=== PATIENT | male | born 1960 | race African-American/Black ===

== ENCOUNTER 2019-03-19 15:46 | Observation (INO) ==
[~2019-03-19 15:46] MED LIST: LEXISCAN ONE
[2019-03-19] MEDS ORDERED: NS 500 ML IV ONE (15:56)
[2019-03-19 16:11] LABS: BASO# 0.05 X1000 (0.0-0.2); BASO% 0.3 % (0.0-0.8); EOS# 0.11 X1000 (0.0-0.7); EOS% 0.8 % (0.0-10.0); HEMOGLOBIN 15.8 g/dL (14.0-18.0); IMM GRAN# 0.03 X1000 (0.0-0.04); IMM GRAN% 0.2 % (0.0-0.5); LYMPH# 4.37 X1000 (1.2-3.4); LYMPH% 30.3 % (20.5-51.1); MCH 28.6 PG (27-31); MCHC 35.1 g/dL (33-37); MCV 81.4 FL (81-99); MONO# 0.74 X1000 (0.11-0.59); MONO% 5.1 % (1.7-9.3); MPV 9.3 FL (7.4-10.4); NEUT% 63.3 % (42.2-75.2); PLT 388 X1000 (130-400); RBC 5.53 XMIL (4.7-6.1); RDW 13.2 % (11.5-14.5)
--- NOTE | 2019-03-19 16:29 | Diag Imaging Result Doc PS360 ---
CHEST-PORTABLE - 03/19/2019 INDICATION: chest tightness COMPARISON: 10/25/2018 FINDINGS: The lungs are normally expanded and clear. Heart size and mediastinal contours are normal. No pneumothorax or pleural effusion. IMPRESSION: Negative exam. Electronically signed by Chapo Carlton 03/19/2019 4:26 PM
[2019-03-19] MEDS ORDERED: FIORICET PO ONE (16:33)
[2019-03-19 16:34] LABS: CALCIUM 10.6 mg/dL (8.8-10.2); CREATININE 1.8 mg/dL (0.7-1.2); POTASSIUM 3.8 mmol/L (3.5-5.1); TOTAL BILIRUBIN 0.5 mg/dL (0.20-1.00)
[2019-03-19 16:35] LABS: ALBUMIN 5.2 g/dL (3.5-5.0); TOTAL PROTEIN 8.5 g/dL (6.3-8.3)
[2019-03-19] MEDS ORDERED: NITROGLYCERIN SL PRN (20:04)
[2019-03-19] MEDS ORDERED: ULTRAM PO PRN (20:04)
[2019-03-19] MEDS ORDERED: TYLENOL WITH CODEINE #3 PO PRN (20:04)
[2019-03-19] MEDS ORDERED: TYLENOL PO PRN (20:04)
[2019-03-19] MEDS: NS 1,000 ML IV SCH (20:55)
[2019-03-19] MEDS ORDERED: ZANTAC PO SCH (21:00)
[2019-03-19] MEDS ORDERED: SOMA PO SCH (21:00)
[2019-03-19] MEDS ORDERED: XANAX PO SCH (21:00)
[2019-03-19] MEDS ORDERED: ROBAXIN PO SCH (21:00)
[2019-03-19 21:01] LABS: CREATININE 1.4 mg/dL (0.7-1.2); POTASSIUM 3.8 mmol/L (3.5-5.1)
--- NOTE | 2019-03-19 21:07 | HISTORY AND PHYSICAL ---
ADDENDUM: The patient came in with chest pain. He is a very dramatic individual, but he does have CAD with 4 PCIs. He describes episodes where he almost passed out, was frothing at the mouth. He also has chest pain that was terrible. He has had episodes of this off and on. Now, according to records here, I do not think he has ever been admitted ever in several years. In any case, the patient will be placed in Observation for chest pain. His physical exam is really unremarkable. He is fairly histrionic and by that, I just mean I think he tends to get worked up and there is anxiety component to his chest pain, but he does have known disease and this will need to be analyzed for other treatments. This is a [id number] note with gary Long. cc: MD Dr. Sloan Trujillo
--- NOTE | 2019-03-19 21:18 | HISTORY AND PHYSICAL ---
PRIMARY CARE PHYSICIAN: Jovan Palencia MD. CHIEF COMPLAINT: Chest pain. HISTORY OF PRESENTING ILLNESS: This is a 58-year-old, male who presents to [facility] ER via EMS after he began having some left-sided chest pain that radiated to his bilateral arms causing numbness with shortness of breath. States that he just "didn't feel right in his heart." Told his family that he needed to be transported to the emergency room. Before they could do that, he had a "pass out" episode where he may have frothed at the mouth some. The patient is very dramatic and tearful during the interview process in assessment, but he does have a history of coronary artery disease and has had stent placements in the past. His workup so far has showed a white blood cell count of 14.40. First set of cardiac enzymes were negative. His creatinine is 1.8, which is above his baseline, that is around 1.1 to 1.4. His EKG showed normal sinus rhythm at 88. A chest x-ray was negative, but we are going to place the patient in the hospital for further evaluation and treatment. PAST MEDICAL HISTORY: Hypertension, coronary artery disease, hyperlipidemia and [place], GERD, chronic back pain and anxiety. PAST SURGICAL HISTORY: Heart stent placement x2. FAMILY HISTORY: Reviewed and noncontributory. SOCIAL HISTORY: Currently lives with family. Was a former smoker. Drinks alcohol occasionally and no illicit drug use. ALLERGIES: Fentanyl, Ketoralac and morphine. HOME MEDICATIONS: He takes Tylenol with codeine #3 q.6 hours p.r.n., Xanax 1 mg p.o. b.i.d., Norvasc 5 mg p.o. daily, aspirin 325 mg p.o. daily, atorvastatin 20 mg p.o. daily, Soma 350 mg p.o. b.i.d. We will hold his diclofenac 75 mg p.o. b.i.d., hold his Star 7.5 p.o. q.6 hours p.r.n., hold his losartan hydrochlorothiazide 100/12.5 p.o. daily, magnesium 400 mg p.o. daily, Robaxin 750 mg p.o. b.i.d., Prilosec 20 mg p.o. daily, prednisone 20 mg p.o. as directed will be held and Zantac 150 mg p.o. b.i.d. and tramadol 50 mg p.o. q.6 hours p.r.n. LABORATORY DATA: Showed a white blood cell count of 14.40, hemoglobin 15.8, hematocrit 45, platelets 388. Sodium 138, potassium 3.8, chloride 96, CO2 of 25, BUN of 25, creatinine 1.8, glucose 135. Cardiac enzymes, the first set, is negative. Chest x-ray showed a negative exam. EKG showed normal sinus rhythm at 88. REVIEW OF SYSTEMS: He denied any fever, chills, blurred vision, dizziness. He had left-sided chest pain radiating to his bilateral arms with numbness. Some shortness of breath, nausea, diaphoresis. States he had a pass out episode and that he had a little foaming at the mouth with. Denied any abdominal pain, constipation, diarrhea, burning or hurting with urination. PHYSICAL EXAMINATION: VITAL SIGNS: On arrival, he had a temperature of 98, pulse 90, respirations 18, blood pressure 125/85, saturating 95% on room air. GENERAL: This is a 58-year-old, male, who is sitting up in the bed, is very tearful and somewhat animated, but answers all questions appropriately. HEENT: Normocephalic, atraumatic. Normal ENT inspection. Oropharynx and nares are clear. Eyes: Pupils are equal, round, reactive to light and accommodation. Extraocular movements are intact. NECK: Normal inspection. Normal range of motion. LUNGS: Clear to auscultation bilaterally with equal lung expansion and chest wall movement. HEART: With regular rate and rhythm. No murmurs, rubs, or gallops. ABDOMEN: Soft, nontender, nondistended. Bowel sounds are present x4 quadrants. MUSCULOSKELETAL: He has 5/5 strength x4 extremities. NEUROLOGICAL: The cranial nerves 2-12 appear grossly intact. ASSESSMENT: 1. Chest pain. 2. Anxiety. 3. Coronary artery disease with stent placement x2. 4. Gastroesophageal reflux disease. PLAN: He will be admitted to the medical unit at [place], placed on telemetry, O2 per protocol. We will do serial cardiac enzymes q.8 x3. We will give him a healthy heart diet tonight. He will be n.p.o. after midnight for myocardial perfusion scan in the a.m. We will also check an echocardiogram and carotid Dopplers. Continue his home medications as previously identified. We are going to give him some normal saline at 100 mL an hour. Recheck a CBC, BMP, and lipid profile in the a.m. and further orders after being seen by attending. Dictated by SAMPSON Guo for Marcelino Jones MD cc: SAMPSON Guo MD Michael Putman, MD
[2019-03-19 21:38] LABS: CK INDEX 0.9 (0.0-2.5); CK-MB 3.7 ng/mL (0.0-5.0)
[2019-03-19] MEDS: XANAX PO SCH (22:25)
[2019-03-19] MEDS: ZANTAC PO SCH (22:26)
[2019-03-20] MEDS: NORCO-7.5 PO PRN ×4 (00:13→16:37)
--- NOTE | 2019-03-20 06:18 | EKG Report ---
Test Performed on : 03/20/2019 06:11:01 AM Test Reason : CP Blood Pressure : / mmHG Vent. Rate : 074 BPM Atrial Rate : 074 BPM P-R Int : 162 ms QRS Dur : 092 ms QT Int : 368 ms P-R-T Axes : 043 051 058 degrees QTc Int : 408 ms Poor data quality, interpretation may be adversely affected Normal sinus rhythm. Normal ECG When compared with ECG of 19-MAR-2019 15:37, (Unconfirmed) No significant change was found Unconfirmed Result
[2019-03-20] MEDS ORDERED: PRILOSEC PO SCH (07:00)
[2019-03-20] MEDS: NS 1,000 ML IV SCH (07:30)
--- NOTE | 2019-03-20 07:49 | PROVIDER DOCUMENTATION ---
This chart was entered by Tari Shoemaker Scribe, acting as scribe for Leanne Kaminski MD. HPI-General Adult - General Chief Complaint: Dizziness Stated Complaint: chest pain Time Seen by Provider: 03/19/19 15:56 Source: patient, family (mother) Allergies/Adverse Reactions: Patient Allergies Allergy/AdvReac Type Severity Reaction Status Date / Time fentanyl Allergy Mild ITCHING Verified 10/25/18 10:27 ketorolac tromethamine * Allergy Mild HIVES Verified 10/25/18 10:27 [From Toradol] morphine Allergy Mild HEADACHE Verified 10/25/18 10:27 Home Medications: Home Medication List Medication Instructions Recorded Confirmed Last Taken Type Aspirin 325 mg PO DAILY 03/09/13 03/19/19 1 Day Ago History ~08/18/17 Ranitidine HCl [Zantac 75] 75 mg PO BID 05/28/15 03/19/19 1 Day Ago History ~08/18/17 Carisoprodol [Soma] 350 mg PO BID 06/15/15 03/19/19 1 Day Ago History ~08/18/17 Hydrocodone/APAP 7.5 mg/325 mg 1 each PO Q6H PRN PRN #10 tablet 08/30/15 03/19/19 1 Day Ago Rx [[place]-7.5] ~08/18/17 Alprazolam [Xanax] 1 mg PO BID 08/19/17 03/19/19 1 Day Ago History ~08/18/17 Omeprazole [Prilosec] 20 mg PO DAILY@0700 #20 cap 12/21/17 03/19/19 Unknown Rx Acetaminophen with Codeine 1 ea PO Q6H PRN PRN #20 tab 03/29/18 03/19/19 Unknown Rx [Tylenol with Codeine #3 Tablet] Magnesium Oxide [Magnesium] 400 mg PO DAILY #30 tab 03/29/18 03/19/19 Unknown Rx Methyl Salicylate/Menth/Camph 57 gm TP 4XDAY PRN PRN #1 cream..g. 03/29/18 03/19/19 Unknown Rx [[place] Muscle Rub Cream] Methocarbamol [Robaxin-750] 750 mg PO BID #20 tab 04/17/18 03/19/19 Unknown Rx Prednisone 20 mg PO DIRECTED #18 tab 04/17/18 03/19/19 Unknown Rx Tramadol [Ultram] 50 mg PO Q6H PRN PRN #10 tab 04/19/18 03/19/19 Unknown Rx Diclofenac Sodium 75 mg PO BID #20 tablet. 10/25/18 03/19/19 Unknown Rx Amlodipine Besylate [Norvasc] 5 mg PO DAILY 03/19/19 03/19/19 Unknown History Atorvastatin Calcium 20 mg PO DAILY 03/19/19 03/19/19 Unknown History Losartan/Hydrochlorothiazide 100 mg PO DAILY 03/19/19 03/19/19 Unknown History [Losartan-Hctz 100-12.5 mg Tab] Ranitidine [Zantac] 150 mg PO BID 03/19/19 03/19/19 Unknown History - History of Present Illness -Gen Adult Nature of Presenting Problems: 58 yobm presents to the ed via ems with c/o numbness BUE, anxiety, chest tightness, [place], n/v and fatigue and has not felt well for 3 days. pt has noted BP 93/77 Location of Pain/Injury: reports: head ([place]), upper extremity (numbness) Quality of Pain: reports: aching ([place]), other (numbness) Severity: reports: mild Onset/Duration: reports: 3 days ago Timing: reports: still present Context/Activities at Onset: reports: light activity Modifying Factors: improves with: nothing Associated Symptoms: reports: anxiety, chest pain (tightness), fatigue, headaches, nausea, vomiting. denies: back/neck pain, diarrhea, fever/chills, shortness of breath Similar Symptoms Previously?: Yes (hx of anxiety) Recently seen or treated by another doctor?: No Review of Systems - Adult - REVIEW OF SYSTEMS - ADULT Constitutional: reports: see HPI, fatique Eyes: reports: no symptoms reported Ears, Nose, Mouth & Throat: reports: no symptoms reported Cardiovascular: reports: see HPI, chest pain. denies: palpitations, syncope Respiratory: denies: shortness of breath, wheezing Gastrointestinal: reports: see HPI, nausea, vomiting. denies: diarrhea Genitourinary: reports: no symptoms reported Musculoskeletal: reports: no symptoms reported Integumentary: reports: no symptoms reported Neurological: reports: see HPI, headache/migraines, numbness (BUE). denies: ataxia, dizziness/vertigo, paresthesia, seizure, slurred speech, syncope, tremors Psychiatric: reports: see HPI, anxiety. denies: alcohol/drug dependence Endocrine: reports: no symptoms reported Hematologic/Lymphatic: reports: no symptoms reported Allergic/Immunologic: reports: no symptoms reported All Other Systems: Reviewed and Negative Past History - Adult - PAST MEDICAL HISTORY-ADULT Review of Records: reports: Nursing Assessment Review, Medications Reviewed Major Childhood Illnesses: reports: denies history Cardiovascular: reports: CAD, HTN, hyperlipidemia, [place] Respiratory: reports: denies history Gastrointestinal: reports: GERD Genitourinary: reports: denies history Musculoskeletal: reports: chronic pain (back) Hand Dominance: Right Handed Neurological: reports: denies history Psychiatric: reports: anxiety Endocrine/Immune: reports: denies history Other Conditions: reports: denies history - PRIOR SURGERIES/PROCEDURES Surgical/Procedure History: reports: cardiac stent (2) - IMMUNIZATION STATUS Childhood Immunizations: See Nurse Assessment Flu Vaccine: See Nurse Assessment - FAMILY HISTORY Family History: reviewed, not pertinent - SOCIAL HISTORY Smoking: quit greater than 1 year Substance Use: alcohol Alcohol Use Frequency: occasionally Number of drinks per typical drinking period:: 1 drink Living Situation: family Physical Exam-General - PHYSICAL EXAM-ADULT Initial Vital Signs Reviewed: Yes - CONSTITUTIONAL General Appearance: alert, no apparent distress - EYES Eyes: PERRL/EOMI, pink conjunctivae - HEAD, EARS, NOSE, MOUTH & THROAT HENMT: moist mucous membranes - NECK Neck: full range of motion, supple, normal inspection - RESPIRATORY Respiratory: chest non-tender, lungs clear, normal breath sounds - CARDIOVASCULAR Cardiovascular: normal peripheral pulses, regular rate, rhythm - CHEST (BREASTS) Chest/Breast: deferred - GASTROINTESTINAL (ABDOMEN) Abdominal Exam: normal bowel sounds, non tender, soft - GENITOURINARY Male Genitalia: deferred Rectal Exam: deferred Hemoccult Exam: deferred - LYMPHATIC Lymphatic: no adenopathy - MUSCULOSKELETAL Back Exam: normal inspection, no CVA tenderness, no vertebral tenderness Extremity: normal range of motion, non-tender, normal inspection, no pedal edema , no calf tenderness - SKIN Integumentary: normal color, normal turgor, warm/dry - NEUROLOGIC Neurologic: grossly normal - PSYCHIATRIC Psych/Mental Status: normal thought content, normal thought process, oriented x 3, anxious Progress - PLAN OF CARE/RESULTS Progress/Plan/Lab Results: Vital Signs - 8 hr 05/22/19 15:30 Temperature 98.0 F Pulse Rate 90 Respiratory Rate 18 Blood Pressure 125/085 O2 Sat by Pulse Oximetry 95 Result Diagrams: 03/19/19 15:44 03/19/19 15:44 - REASSESSMENT Reassessment #1 Time Reassessed: 16:42 Status: unchanged - EKG 1 Time of EKG reading by physician:: 15:37 EKG Read and Signed by:: Leanne Kaminski EKG Interpretation (*Must complete 3 of following elements*): Abnormal Rate: 88 Rhythm: nsr [place]: normal QRS: normal PA Interval: normal ST Wave: normal Comments: nonspecific T wave abnormality - XRAY 1 XRAY: Bilateral XRAY Study: Chest Impression: See EMR Report (CHEST-PORTABLE - 03/19/2019 INDICATION: chest tightness COMPARISON: 10/25/2018 FINDINGS: The lungs are normally expanded and clear. Heart size and mediastinal contours are normal. No pneumothorax or pleural effusion. IMPRESSION: Negative exam. Electronically signed by Chapo Carlton 03/19/2019 4:26 PM 03/19/191625 Interpreting Physician: Chapo Carlton MD Dictated Date/Time: 03/19/191625 cc: Leanne Kaminski MD;) - CONSULTS/PCP/HOSPITALIST Notification #1 *Consult/PCP/Hospitalist*: hospitalist dr kimble Time Discussed: 17:20 Consult Disposition: Admit Departure - Departure Date of Disposition Decision: 03/19/19 Time of Disposition Decision: 17:20 DIAGNOSIS: Anxiety Chest pain Qualifiers: Chest pain type: unspecified Qualified Code(s): R07.9 - Chest pain, unspecified Disposition: ADMITTED INPATIENT 09 Certified Medical Emergency: Emergent Condition: Stable Referrals and Follow-Ups: None,PCP [Primary Care Provider] - - Critical Care Note This patient required my direct & personal management of CC.: No Attestation - Physician/ JI Attestation Patient care was provided by Advanced Practice Provider:: No The physician spent face to face time with patient:: Yes Advanced Practice Provider documentation review:: Supervising physician onsite and consulted in the evaluation and care of this patient. The physician did have a face to face encounter with the patient. - HEART Score HEART Score: History: Slightly Suspicious HEART Score: ECG: Non-Specific Repolarization Disturbance/LBBB/PM HEART Score: Age: 45-65 Years HEART Score: Risk Factors for Atherosclerotic Disease: > or = 3 Risk Factors or History of Atherosclerotic Disease HEART Score: Troponin: < or = Normal Limit Total HEART Score:: 4 This chart was documented by the indicated scribe, (Tari Shoemaker Scribe) and accurately reflects the services I performed and decisions made by Gordy michale Mai Huu, MD, as attested by the provider's signature.
[2019-03-20 08:03] LABS: BASO% 0.7 % (0.0-0.8); EOS# 0.19 X1000 (0.0-0.7); EOS% 1.9 % (0.0-10.0); HEMATOCRIT 38.7 % (42.0-52.0); HEMOGLOBIN 13.2 g/dL (14.0-18.0); IMM GRAN% 0.1 % (0.0-0.5); LYMPH# 4.88 X1000 (1.2-3.4); LYMPH% 48.8 % (20.5-51.1); MCH 28.4 PG (27-31); MCHC 34.1 g/dL (33-37); MCV 83.4 FL (81-99); MONO# 0.67 X1000 (0.11-0.59); MONO% 6.7 % (1.7-9.3); MPV 9.1 FL (7.4-10.4); NEUT# 4.17 X1000 (1.4-6.5); NEUT% 41.8 % (42.2-75.2); PLT 281 X1000 (130-400); RBC 4.64 XMIL (4.7-6.1); RDW 13.2 % (11.5-14.5); WBC 9.99 X1000 (4.8-10.8)
[2019-03-20 08:04] LABS: BASO# 0.07 X1000 (0.0-0.2); IMM GRAN# 0.01 X1000 (0.0-0.04)
[2019-03-20 08:35] LABS: CK INDEX 0.8 (0.0-2.5); CK-MB 3.58 ng/mL (0.0-5.0)
[2019-03-20] MEDS ORDERED: ASPIRIN PO SCH (09:00)
[2019-03-20] MEDS ORDERED: LIPITOR PO SCH (09:00)
[2019-03-20] MEDS ORDERED: NORVASC PO SCH (09:00)
[2019-03-20] MEDS: ZANTAC PO SCH (09:00)
[2019-03-20] MEDS ORDERED: PNEUMOVAX 23 IM ONE (09:00)
[2019-03-20] MEDS: XANAX PO SCH (09:01)
[2019-03-20] MEDS: ZOFRAN IV PRN ×2 (09:05→16:38)
--- NOTE | 2019-03-20 11:05 | GRADED EXERCISE REPORT ---
DATE: 03/20/2019 PROCEDURE: GXT Lexiscan administration EKG interpretation. REQUESTING PROVIDER: Dr. Marcelino Jones. DESCRIPTION OF PROCEDURE IN DETAIL: This is a 58-year-old gentleman with known CAD, presenting with chest pain, shortness of breath. His baseline EKG showed some ST elevations, but I think they were submillimeter in V 3, V 6, but otherwise were nonspecific. May have been a little bit accuse, but I do not think they quite qualified for Q-waves in inferior leads. He underwent Lexiscan infusion of 0.4 mg. He did develop some chest pain. There was some ST flattening in his inferior leads during the stress test only in lead 2, was at more than a millimeter, but I did feel there was ST elevation in V 3 through V 6. It more than a millimeter, but it was not a typical ischemic change; it kind of had a sloping pattern which may just have been some J-point elevation. So, test was felt to be clinically positive and electrically positive, although may just simply be J-point elevation. Increase heart rate 109, increase blood pressure 110/71. Myocardial perfusion reported separately. cc: Marcelino Jones MD
--- NOTE | 2019-03-20 12:18 | EKG Report ---
Test Performed on : 03/19/2019 3:37:02 PM Test Reason : ER Blood Pressure : / mmHG Vent. Rate : 088 BPM Atrial Rate : 088 BPM P-R Int : 146 ms QRS Dur : 086 ms QT Int : 340 ms P-R-T Axes : 036 040 069 degrees QTc Int : 411 ms Normal sinus rhythm. Nonspecific T wave abnormality Abnormal ECG When compared with ECG of 25-OCT-2018 12:09, Nonspecific T wave abnormality now evident in Lateral leads Unconfirmed Result
[2019-03-20 13:18] LABS: CK INDEX 0.8 (0.0-2.5); CK-MB 3.64 ng/mL (0.0-5.0)
--- NOTE | 2019-03-20 14:21 | Extremity Venous Study ---
EXAM: Carotid Ultrasound - 03/20/2019 HISTORY: CP TECHNIQUE: Carotid flow studies COMPARISON: None. FINDINGS: There are some atherosclerotic plaquing at the right common carotid. Systolic velocity in the right common carotid is 93 cm/s, and diastolic velocity is 18 cm/s. Maximum systolic velocity in the right internal carotid is 70 cm/s, and maximum diastolic velocity is 25 cm/s. The right internal to common carotid systolic velocity ratio is 0.76. The flow velocities and ratio are consistent with 0-39% stenosis at the right internal carotid. The right vertebral demonstrates antegrade flow. There are some atherosclerotic plaquing at the left carotid, carotid. Systolic velocity in the left common carotid is 100 cm/s, and diastolic velocity is 15 cm/s. Maximum systolic velocity in the left internal carotid is 80 cm/s, and maximum diastolic velocity is 32 cm/s. The left internal to common carotid systolic velocity ratio is 0.80. The flow velocities and ratio are consistent with 0-39% stenosis at the left internal carotid. The left vertebral demonstrates antegrade flow. IMPRESSION: Some atherosclerotic plaquing at right common carotid. 0-39% stenosis at right internal carotid. Some atherosclerotic plaquing at left common carotid. 0-39% stenosis at left internal carotid. Electronically signed by Manny Olmedo 03/20/2019 2:19 PM
[2019-03-20] MEDS ORDERED: NORCO-7.5 PO PRN (14:57)
[2019-03-20 15:25] LABS: AGAP 12; BUN 19 mg/dL (8-22); CALCIUM 8.7 mg/dL (8.8-10.2); CHLORIDE 99 mmol/L (98-107); COSMO 277; ESTIMATED GFR > 60; GLUCOSE 112 mg/dL (70-104); POTASSIUM 3.7 mmol/L (3.5-5.1); SODIUM 137 mmol/L (136-145); TCO2 26 mmol/L (25-35)
[2019-03-20] MEDS ORDERED: FLOMAX PO SCH (16:15)
[2019-03-20 17:05] VITALS: BP 132/93
--- NOTE | 2019-03-20 17:27 | PROGRESS NOTE ---
DATE: 03/20/2019 SUBJECTIVE: Patient has no major complaints. He seems a little more relaxed, although that may be because of Xanax and things like that. His serial enzymes have been negative. OBJECTIVE: Vital Signs: Blood pressure is 90/45, heart rate 77, respiratory rate 18, temperature 97.3 degrees. Cardiovascular: Regular rate and rhythm. Pulmonary: Bilateral breath sounds. Clear to auscultation. GI: Soft, nontender, nondistended. Bowel sounds are positive. LABORATORY DATA: Cardiac enzymes are negative. His white count is 9. We did not get a basic today, so we are going to go look at that. PROBLEM LIST: 1. Chest pain, atypical. We are waiting on results of stress test and echocardiogram. 2. Possible syncope which may be related to dehydration. We are going to monitor for that. 3. Disposition is pending clinical status. I would think if his tests are negative he could go home, but he is a very anxious person. I do not have his stress test or his echo yet. His carotid showed minimal plaque, but in the 0 to 39% range. cc: Marcelino Jones MD
--- NOTE | 2019-03-20 22:24 | Diag Imaging Result Document ---
PROCEDURE NAME: MYOCARDIAL PERF SCAN, STR/REST - 03/20/2019 SUMMARY: The patient was administered 14.2 mCi of technetium-99m sestamibi, after which resting cardiac images were obtained. Patient was subsequently administered Lexiscan 0.4 mg intravenously, after which the heart rate went from 66 beats per minute to 109 beats per minute, and the blood pressure went from 100/70 to 101/63. With Lexiscan, the patient denied chest discomfort. Following administration of Lexiscan, the patient was administered 40.2 mCi of technetium-99m sestamibi, after which gated stress cardiac images were obtained. Baseline ECG demonstrated normal sinus rhythm. With Lexiscan, there were no diagnostic ST-segment changes. SPECT images were reconstructed in the short, horizontal long, and vertical long axis. Review of these images demonstrated homogeneous uptake of radiopharmaceutical both stress and resting images. Gated images demonstrate a calculated left ventricular ejection fraction of 66% with symmetrical wall motion. CONCLUSIONS: 1. Adequate response to Lexiscan. 2. Clinically negative for chest pain. 3. Electrocardiographically negative for Lexiscan-induced myocardial ischemia. 4. Normal Lexiscan sestamibi images. cc: MD Shikha James CRNP
--- NOTE | 2019-03-20 22:28 | ECHO REPORT ---
ORDER DATE: 03/20/2019 MEASUREMENTS: Septal thickness 0.9. Left ventricular internal diameter diastole 3.5. Posterior wall thickness 0.8. Left ventricular internal diameter in systole 1.9. Aortic root 2.8. Left atrium 3.2. SUMMARY: 1. Technically difficult study due to limited parasternal and limited subcostal acoustic windows. 2. Aortic valve is trileaflet and opens normally on 2-dimensional images. Peak gradient across aortic valve was less than 10 mmHg. Mitral and tricuspid valves are without evidence of structural abnormality while pulmonic valve is not well demonstrated. Aortic root is normal in size. 3. Normal left ventricular dimensions demonstrated. Estimated left ventricular ejection fraction appears to be at least 65%. No regional wall motion abnormalities evident. Left atrium, right atrium, right ventricle are normal size with normal right ventricular systolic function. 4. No pericardial effusion. 5. Inferior vena cava not well demonstrated. cc: MD Shikha James CRNP
--- NOTE | 2019-03-21 14:45 | DISCHARGE SUMMARY ---
ADMISSION DATE: 03/19/2019 DISCHARGE DATE: 03/20/2019 PRIMARY CARE PHYSICIAN: Dr. Jovan Palencia. ADMISSION DIAGNOSES: 1. Chest pain. 2. Anxiety. 3. CAD with stent placement x2. 4. Gastroesophageal reflux disease. DISCHARGE DIAGNOSES: 1. Chest pain resolved ruled out by myocardial perfusion scan. 2. Anxiety. 3. Coronary artery disease. 4. Gastroesophageal reflux disease. SUMMARY OF FINDINGS: This is a 58-year-old male who presented with left-sided chest pain that radiated to bilateral arms causing numbness and shortness of breath. He states that he just "did not feel right in his heart". He had a "passed out episode" and may have frothed at the mouth some. He was very dramatic and tearful on arrival. We admitted him. His cardiac enzymes x4 sets have been negative. We did a myocardial perfusion scan that was normal. We did a carotid Doppler that showed 0 to 39 percent stenosis at the right internal carotid. We did an echocardiogram, but those results are pending, and can be reviewed by his primary care physician of his follow-up, but it is felt that he can safely be discharged home. He continues to have a lot of anxiety, and discussed this with our attending who agreed to increase his Xanax until he can see his primary care physician to 2 mg p.o. t.i.d. We will give him a prescription for 21 tablets with no refills. He may need to consider an SSRI for his depression as he is tearful, still talking about the of his 2 brothers, and that it causes tremendous anxiety for him. DISCHARGE MEDICATIONS: Also include Norvasc 5 mg p.o. daily, atorvastatin 20 mg p.o. daily, Xanax 150 mg p.o. b.i.d., tramadol 50 mg p.o. q.6 hours p.r.n., [place] 7.5 one p.o. q.4 hours p.r.n. He has been told to hold his Lasix due to his mild acute kidney injury that has resolved. We are going to place him on losartan 50 mg p.o. daily #30 with 1 refill. FOLLOW-UP: He needs to call the office with Dr. Palencia on Sunday03/25/2019 to schedule an appointment to follow up with him. All discharge instructions have been reviewed with the patient, and he verbalizes understanding. TIME SPENT: This is a 33 minute discharge. Dictated by SAMPSON Guo for Marcelino Jones MD cc: SAMPSON Guo MD Dr. Putman
== END 2019-03-20 18:55 | disposition home or self-care (01) ==
LOC: P.ED 15:46 → P.MEDSURG 15:46
PROVIDERS: ATTEND Internal Medicine
CPT/HCPCS: 71010; 71045; 78452; 80048; 80053; 80061; 82550; 82553; 82948; 83721; 84484; 85025; 90732; 93005; 93017; 93306; 93880; 94761; 99285; A9270; A9500; J2405; J2785; J7030; J7040; XXXXX